=== PATIENT | male | born 1960 | race Hispanic/Latino ===

== ENCOUNTER 2017-03-13 11:21 | Emergency (ER) | payer OTHER ==
[2017-03-13 11:38] VITALS: BP 149/83; PULSE 77; RESP 18; TEMP 97.9; O2SAT 96; BMI 40.1
--- NOTE | 2017-03-13 11:43 | ED PDOC ---
Arrival/HPI - General Chief Complaint: Abnormal Skin Integrity Time Seen by Provider: 03/13/17 11:24 Historian: Patient - History of Present Illness Time/Duration: Prior to Arrival Symptom Onset: Sudden Symptom Course: Unchanged Severity Level: Severe Associated Symptoms (Text): 03/13/17 11:41 Patient was at work just prior to arrival and varicosity on his right lateral proximal lower leg began to bleed spontaneously. There was no injury or trauma. Past Medical History - Tetanus Immunization Tetanus Immunization: >10 years Ago - Cardiac Hx Hypertension: Yes - Endocrine/Metabolic Hx Diabetes Mellitus Type 2: Yes - Musculoskeletal/Rheumatological Hx Falls: No - Psychiatric Hx Depression: Yes Hx Emotional Abuse: No Hx Physical Abuse: No Hx Substance Use: No - Past Surgical History Past Surgical History: No Previous - Anesthesia Hx Anesthesia: No - Suicidal Assessment Feels Threatened In Home Enviroment: No Family/Social History - Physician Review Nursing Documentation Reviewed: Yes Family/Social History: Unknown Family HX Smoking Status: Former Smoker (Quit smoking 6 years ago) Hx Alcohol Use: No Hx Substance Use: No Hx Substance Use Treatment: No Allergies/Home Meds Allergies/Adverse Reactions: Allergies No Known Allergies Allergy (Verified 01/26/15 18:43) Home Medications: Home Meds Medication Instructions Recorded Confirmed Fluoxetine Hydrochloride [Prozac] 20 mg PO DAILY 04/29/14 03/13/17 Lisinopril/Hydrochlorothiazide 1 tab PO DAILY 04/29/14 03/13/17 [Lisinopril-Hydrochlorothiazide 25 mg-20 mg] Lovastatin 40 mg PO DAILY 04/29/14 03/13/17 Metformin HCl [Metformin] 1,000 mg PO BID 04/29/14 03/13/17 Review of Systems - Physician Review All systems were reviewed & negative as marked: Yes Physical Exam Vital Signs Temp Pulse Resp BP Pulse Ox 03/13/17 11:29 97.9 F 77 18 149/83 96 Temperature: Afebrile Blood Pressure: Normal Pulse: Regular Respiratory Rate: Normal Appearance: Positive for: Well-Appearing, Non-Toxic, Comfortable, Other (Obese) Pain Distress: None Mental Status: Positive for: Alert and Oriented X 3 - Systems Exam Skin: Present: Warm, Dry, Rashes (Generalized psoriatic rash), Normal Color, Other (Right proximal lateral lower leg varicosity, bleeding controlled with pressure). No: Diaphoretic Medical Decision Making ED Course and Treatment: 03/13/17 12:10 Bleeding controlled with pressure dressing. Patient is up walking in the department with no further bleeding. Disposition/Present on Arrival - Present on Arrival Any Indicators Present on Arrival: No History of DVT/PE: No History of Uncontrolled Diabetes: No Urinary Catheter: No History of Decub. Ulcer: No History Surgical Site Infection Following: None - Disposition Have Diagnosis and Disposition been Completed?: Yes Diagnosis: Bleeding from varicose vein Disposition: HOME/ ROUTINE Disposition Time: 12:10 Patient Plan: Discharge Condition: GOOD Discharge Instructions (ExitCare): Varicose Veins (ED)
== END 2017-03-13 12:50 | disposition home or self-care (01) ==
LOC: ED 11:21
DX: I83.891 Varicose veins of right lower extremity with other complications (principal)